=== PATIENT | male | born 1960 | race Caucasian/White ===

== ENCOUNTER 2018-07-30 10:13 | Emergency (ER) | payer MEDICAID ==
--- NOTE | 2018-07-30 11:57 | ED Physician Documentation ---
PD HPI ABD PAIN - Stated complaint Stated Complaint: STOMACH PAIN - Chief complaint Chief Complaint: Abd Pain - History obtained from History obtained from: Patient - History of Present Illness Timing - duration: Weeks (3) Timing - details: Waxing and waning Quality: Cramping Location: All over / everywhere Associated symptoms: Nausea, Diarrhea Similar symptoms before: Diagnosis (h/o Crohn's) - Additional information Additional information: The patient is a 58-year-old male with history of Crohn's disease, status post partial bowel resection, who presents with diarrhea of about 3 weeks' duration. He reports having 45 diarrhea stools per day. He has had intermittent abdominal cramping, and bloating. He reports nausea, without vomiting. He denies fever or dysuria. He denies any recent travel or camping, and has been on no recent antibiotic therapy. He has a history of similar symptoms intermittently in the past. The last time was this bad was about 5 years ago. He has no local primary physician. Review of Systems Constitutional: denies: Fever Ears: denies: Tinnitus/ringing Nose: denies: Congestion Throat: denies: Sore throat Cardiac: denies: Chest pain / pressure Respiratory: denies: Dyspnea, Cough GI: reports: Abdominal Pain, Nausea, Diarrhea. denies: Vomiting, Bloody / black stool : denies: Dysuria Skin: denies: Rash Musculoskeletal: denies: Back pain, Extremity pain Neurologic: denies: Focal weakness, Numbness, Headache PD PAST MEDICAL HISTORY - Past Medical History Past Medical History: Yes Cardiovascular: None Respiratory: None Endocrine/Autoimmune: None GI: Crohn's disease : None HEENT: None Psych: Depression, Anxiety Musculoskeletal: Chronic back pain Derm: None - Past Surgical History Past Surgical History: Yes General: Bowel surgery Neuro: Other - Present Medications Home Medications: Ambulatory Orders Medication Instructions Recorded Confirmed Promethazine [Phenergan] 25 mg PO Q6H PRN #10 tab 07/30/18 Sulfamethox/Trimeth 800/160 1 each PO BID #14 tablet 07/30/18 [Bactrim Ds 800/160] - Allergies Allergies/Adverse Reactions: Allergies Allergy/AdvReac Type Severity Reaction Status Date / Time No Known Drug Allergies Allergy Verified 07/30/18 10:21 - Living Situation Living Situation: reports: Alone - Social History Does the pt smoke?: Yes Smoking Status: Current every day smoker Does the pt drink ETOH?: Yes Does the pt have substance abuse?: No - Immunizations Immunizations are current?: No Immunizations: TDAP >10years/unknown, Other immun current - POLST Patient has POLST: No PD ED PE NORMAL - Vitals Vital signs reviewed: Yes (Diastolic hypertension initially.) - General General: Alert and oriented X 3, Well developed/nourished - HEENT HEENT: Atraumatic, Moist mucous membranes - Neck Neck: Supple, no meningeal sign, No adenopathy - Cardiac Cardiac: RRR - Respiratory Respiratory: No respiratory distress, Clear bilaterally - Abdomen Abdomen: Normal bowel sounds, Soft, Other (Mild tenderness to palpation in the left lower quadrant, without rebound or guarding.) - Back Back: No CVA TTP - Derm Derm: No rash - Extremities Extremities: No edema, No calf tenderness / cord - Neuro Neuro: Alert and oriented X 3, No motor deficit, Normal speech PD ED PE EXPANDED - Rectal Rectal: Heme Occult Neg - QC+, Hemorrhoid Results - Vitals Vitals: Oxygen O2 Source Room air - Labs Labs: Laboratory Tests 07/30/18 07/30/18 10:55 10:55 WBC 6.2 RBC 4.17 L Hgb 15.5 Hct 44.1 MCV 105.8 H MCH 37.1 H MCHC 35.1 RDW 15.3 H Plt Count 318 MPV 8.5 Neut # (Auto) 2.9 Lymph # (Auto) 2.0 [place] # (Auto) 0.4 Eos # (Auto) 0.8 H Baso # (Auto) 0.1 Absolute Nucleated RBC 0.00 Nucleated RBC % 0.1 Sodium 139 Potassium 4.1 Chloride 104 Carbon Dioxide 25 Anion Gap 10.0 BUN 10 Creatinine 0.8 Estimated GFR (MDRD) 99 Glucose 101 H Calcium 9.4 Total Bilirubin 0.5 AST 20 ALT 26 Alkaline Phosphatase 60 Total Protein 7.6 Albumin 4.3 Globulin 3.3 Albumin/Globulin Ratio 1.3 Lipase 36 - Rads (name of study) CT abd/pelvis Radiology: Prelim report reviewed, EMP read contemporaneously, See rad report (No CT evidence of bowel obstruction or pneumoperitoneum.) PD MEDICAL DECISION MAKING - ED course Complexity details: reviewed results, re-evaluated patient, considered differential, d/w patient ED course: The patient's presentation is significant for diarrhea of uncertain etiology. 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 Crohn's flareup was considered, but does not appear to be the cause. CT scan of the abdomen and pelvis reveals no evidence of inflammation, intra-abdominal abscess, bowel obstruction, or pneumoperitoneum. CBC and chemistry panel are essentially normal, except for macrocytosis. Infectious etiology is considered, but the patient was not able to deliver a stool specimen for evaluation. Treatment in the emergency department included administration of normal saline 1 L IV, and fentanyl 50 g IV. The patient is quite insistent that he be treated with antibiotics, stating that that has always worked in the past. I was unable to convince him otherwise. He is being discharged with prescription for Bactrim DS and for Phenergan. I discussed with him the importance of outpatient follow- up, as well as potentially worrisome signs or symptoms that should prompt reevaluation in the emergency department. Departure - Departure Disposition: 01 Home, Self Care Clinical Impression: Gastroenteritis, H/O Crohn's disease Condition: Stable Instructions: ED Abdominal Pain Unkn Cause Male Prescriptions: Promethazine [Phenergan] 25 mg PO Q6H PRN #10 tab PRN Reason: Nausea / Vomiting Sulfamethox/Trimeth 800/160 [Bactrim Ds 800/160] 1 each PO BID #14 tablet Comments: Drink plenty of fluids. Take Bactrim twice daily as prescribed. Follow-up with primary physician within 1-2 weeks. Call to schedule appointment. You can use Phenergan as prescribed as needed for nausea. Return to the emergency department if you develop increasing abdominal pain, dehydration, persistent vomiting, or otherwise worsening symptoms. Discharge Date/Time: 07/30/18 14:23
[2018-07-30 12:10] LABS: ALBUMIN 4.3 g/dL (3.2-5.5); ALBUMIN/GLOBULIN RATIO 1.3 (1.0-2.2); BILIRUBIN,TOTAL 0.5 mg/dL (0.2-1.0); CALCIUM 9.4 mg/dL (8.5-10.3); CREATININE 0.8 mg/dL (0.6-1.2); TOTAL PROTEIN 7.6 g/dL (6.7-8.2)
[2018-07-30 12:12] LABS: BASOPHILS # (AUTO) 0.1 10^3/uL (0.0-0.1); BASOPHILS % (AUTO) 1.1 %; EOSINOPHILS # (AUTO) 0.8 10^3/uL (0.0-0.7); EOSINOPHILS % (AUTO) 12.5 %; HGB - HEMOGLOBIN 15.5 g/dL (14.0-18.0); LYMPHOCYTES % (AUTO) 32.5 %; MEAN CORPUSCULAR HEMOGLOBIN 37.1 pg (27.0-31.0); MEAN CORPUSCULAR HGB CONC 35.1 g/dL (32.0-36.0); MEAN CORPUSCULAR VOLUME 105.8 fL (80.0-94.0); MEAN PLATELET VOLUME 8.5 fL (7.4-11.4); MONOCYTES # (AUTO) 0.4 10^3/uL (0.0-1.0); MONOCYTES % (AUTO) 6.9 %; NEUTROPHILS # (AUTO) 2.9 10^3/uL (1.5-6.6); PLT - PLATELET COUNT 318 10^3/uL (130-450); RED BLOOD COUNT 4.17 10^6/uL (4.70-6.10); RED CELL DISTRIBUTION WIDTH 15.3 % (12.0-15.0); WHITE BLOOD COUNT 6.2 x10^3/uL (4.8-10.8)
[2018-07-30] MEDS: SODIUM CHLORIDE 0.9% 1,000 ML IV ONE (12:18)
[2018-07-30] MEDS ORDERED: IOVERSOL 320 100 ML VIAL IVP ONE (12:23)
[2018-07-30] MEDS: fentaNYL 100 MCG/2 ML VIAL IVP STA (12:33)
[2018-07-30] MEDS: IOVERSOL 320 100 ML VIAL IVP ONE (12:52)
[2018-07-30 13:09] VITALS: BP 115/82
--- NOTE | 2018-07-30 13:23 | CT Report ---
Reason: LLQ abd pain; h/o Crohns Procedure Date: 07/30/2018 Accession Number: [id number] / [id number] Procedure: CT - Abdomen/Pelvis W CPT Code: FULL RESULT: EXAM: CT ABDOMEN AND PELVIS EXAM DATE: 07/30/2018 12:51 PM. CLINICAL HISTORY: Left lower quadrant abdominal pain. History of Crohn's disease. History of bowel resection, 5 times. COMPARISONS: None. TECHNIQUE: Routine helical CT imaging was performed through the abdomen and pelvis. IV contrast: Opti 320 90 mL. Enteric contrast: No. Reconstructions: Coronal and sagittal. In accordance with CT protocol optimization, one or more of the following dose reduction techniques were utilized for this exam: automated exposure control, adjustment of mA and/or KV based on patient size, or use of iterative reconstructive technique. FINDINGS: Lung Bases: Unremarkable. Liver: There are hepatic hypodensities which are too small to characterize. Gallbladder/Bile Ducts: Unremarkable. Spleen: There is splenic hypodensities which are too small to characterize. Pancreas: Normal. Adrenal Glands: Normal. Kidneys: Normal. No masses or hydronephrosis. Peritoneal Cavity/Bowel: The patient is status post multiple bowel surgeries with multiple anastomoses consistent with the provided history. There is no bowel obstruction. Appearance of the bowel wall demonstrates preserved enhancement throughout with distortion of the bowel configuration, expected with a history of Crohn's and multiple bowel surgeries. There is no free air or free fluid or lymphadenopathy. Appendix and cecum are absent. Pelvic Organs: The visualized prostate and bladder appear within normal limits. Vasculature: Mild atherosclerosis, no aneurysm. Bones: No significant abnormality. Other: None. IMPRESSION: No evidence of bowel obstruction or pneumoperitoneum. RADIA
== END 2018-07-30 14:23 | disposition home or self-care (01) ==
LOC: ED 10:13
DX: K52.9 Noninfective gastroenteritis and colitis, unspecified (principal); F17.200 Nicotine dependence, unspecified, uncomplicated; Z87.19 Personal history of other diseases of the digestive system; Z90.49 Acquired absence of other specified parts of digestive tract
CPT/HCPCS: 36415; 74177; 80053; 83690; 85025; 96374; 99283; 99284

== ENCOUNTER 2020-12-02 09:41 | Emergency (ER) | payer MEDICAID ==
[2020-12-02 09:53] VITALS: BP 115/75
[2020-12-02 10:04] LABS: BILIRUBIN,URINE NEGATIVE (NEGATIVE); GLUCOSE, URINE (UA) NEGATIVE (NEGATIVE); KETONES,URINE (UA) TRACE mg/dL (NEGATIVE); LEUKOCYTE ESTERASE, URINE NEGATIVE (NEGATIVE); NITRITE,URINE NEGATIVE (NEGATIVE); OCCULT BLOOD,URINE NEGATIVE (NEGATIVE); PROTEIN,URINE NEGATIVE (NEGATIVE); UROBILINOGEN,URINE 0.2 (NORMAL) E.U./dL (NORMAL)
[2020-12-02 10:08] LABS: CLARITY,URINE CLEAR (CLEAR)
[2020-12-02 10:26] LABS: ALBUMIN 4.5 g/dL (3.2-5.5); ALBUMIN/GLOBULIN RATIO 1.4 (1.0-2.2); BILIRUBIN,TOTAL 1.1 mg/dL (0.2-1.0); CALCIUM 9.3 mg/dL (8.5-10.3); POTASSIUM 3.1 mmol/L (3.5-5.0); TOTAL PROTEIN 7.7 g/dL (6.7-8.2)
[2020-12-02] MEDS ORDERED: POTASSIUM CHLOR 10 MEQ/100 ML 10 MEQ/100 ML BAG IV ONE (10:34)
[2020-12-02 10:40] LABS: BASOPHILS % (AUTO) 0.6 %; EOSINOPHILS # (AUTO) 0.3 10^3/uL (0.0-0.7); EOSINOPHILS % (AUTO) 4.4 %; HCT - HEMATOCRIT 43.6 % (42.0-52.0); HGB - HEMOGLOBIN 15.9 g/dL (14.0-18.0); LYMPHOCYTES # (AUTO) 1.5 10^3/uL (1.5-3.5); LYMPHOCYTES % (AUTO) 21.7 %; MEAN CORPUSCULAR HEMOGLOBIN 38.1 pg (27.0-31.0); MEAN CORPUSCULAR HGB CONC 36.5 g/dL (32.0-36.0); MEAN CORPUSCULAR VOLUME 104.6 fL (80.0-94.0); MEAN PLATELET VOLUME 10.1 fL (7.4-11.4); MONOCYTES # (AUTO) 0.4 10^3/uL (0.0-1.0); MONOCYTES % (AUTO) 6.2 %; NEUTROPHILS # (AUTO) 4.6 10^3/uL (1.5-6.6); PLT - PLATELET COUNT 349 10^3/uL (130-450); RED BLOOD COUNT 4.17 10^6/uL (4.70-6.10); RED CELL DISTRIBUTION WIDTH 13.5 % (12.0-15.0); WHITE BLOOD COUNT 6.8 x10^3/uL (4.8-10.8)
[2020-12-02 10:56] LABS: VBG BASE EXCESS -0.2 mmol/L (-2 - +2); VBG HCO3 21.9 mmol/L (23-28); VBG OXYGEN SATURATION 95.1 % (60-80); VBG PCO2 29.5 mmHg (41-51); VBG PH 7.488 (7.31-7.41); VBG PO2 67.6 mmHg (25-47); VBG TOTAL CO2 22.8 mmol/L (24-29)
[2020-12-02] MEDS ORDERED: predniSONE 20 MG TABLET PO STA (11:24)
--- NOTE | 2020-12-02 11:25 | XRAY Report ---
PROCEDURE: Chest 2 View X-Ray INDICATIONS: SOA, ARCHER TECHNIQUE: 2 view(s) of the chest. COMPARISON: 01/18/2014 FINDINGS: Surgical changes and devices: None. Lungs and pleura: No pleural effusions or pneumothorax. Lungs are clear. Mediastinum: Mediastinal contours are normal. Heart size is normal. Bones and chest wall: No suspicious bony abnormalities. Soft tissues appear unremarkable. IMPRESSION: No evidence acute pulmonary process. Reviewed by: Alek Miranda MD on 12/02/2020 10:24 AM [facility] Approved by: Alek Miranda MD on 12/02/2020 10:24 AM L[facility] Station ID: [id number]
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
[2020-12-02] MEDS ORDERED: POTASSIUM CHLORIDE 20 MEQ TABLET PO STA (11:34)
[2020-12-02 12:25] LABS: HIV RAPID SCREEN NEGATIVE (NEGATIVE)
[2020-12-02 20:23] LABS: CHLAMYDIA TRACHOMATIS DNA NEGATIVE (NEGATIVE); NEISSERIA GONORRHOEAE DNA NEGATIVE (NEGATIVE)
[2020-12-04 18:07] LABS: HEPATITIS A IGM NON-REACTIVE (NON-REACTIVE); HEPATITIS B CORE ANTIBODY IGM NON-REACTIVE (NON-REACTIVE); HEPATITIS B SURFACE ANTIGEN NON-REACTIVE (NON-REACTIVE); HEPATITIS C ANTIBODY NON-REACTIVE (NON-REACTIVE)
== END 2020-12-02 11:55 | disposition home or self-care (01) ==
LOC: ED 09:41
DX: R19.7 Diarrhea, unspecified (principal); R11.0 Nausea; R10.32 Left lower quadrant pain; R10.31 Right lower quadrant pain; F17.200 Nicotine dependence, unspecified, uncomplicated
CPT/HCPCS: 36415; 71046; 80053; 80074; 81003; 82803; 83690; 83880; 85025; 86592; 86703; 87491; 87591; 93005; 99284; A9270; J7512; 81001; 87086; 87661

== ENCOUNTER 2021-02-12 11:50 | Outpatient (CLI) | payer MEDICAID ==
[2021-02-12 12:31] LABS: BASOPHILS # (AUTO) 0.1 10^3/uL (0.0-0.1); BASOPHILS % (AUTO) 1.2 %; EOSINOPHILS # (AUTO) 0.5 10^3/uL (0.0-0.7); HCT - HEMATOCRIT 46.3 % (42.0-52.0); LYMPHOCYTES % (AUTO) 29.8 %; MEAN CORPUSCULAR HEMOGLOBIN 36.6 pg (27.0-31.0); MEAN CORPUSCULAR HGB CONC 34.6 g/dL (32.0-36.0); MEAN CORPUSCULAR VOLUME 105.9 fL (80.0-94.0); MONOCYTES # (AUTO) 0.5 10^3/uL (0.0-1.0); MONOCYTES % (AUTO) 7.8 %; NEUTROPHILS # (AUTO) 3.6 10^3/uL (1.5-6.6); NEUTROPHILS % (AUTO) 52.9 %; PLT - PLATELET COUNT 326 10^3/uL (130-450); RED BLOOD COUNT 4.37 10^6/uL (4.70-6.10); RED CELL DISTRIBUTION WIDTH 12.6 % (12.0-15.0); WHITE BLOOD COUNT 6.8 x10^3/uL (4.8-10.8)
[2021-02-12 12:36] LABS: INR 1.1 (0.8-1.2); PT - PROTHROMBIN TIME 11.9 secs (9.9-12.6)
[2021-02-12 12:46] LABS: ALBUMIN 4.5 g/dL (3.2-5.5); ALBUMIN/GLOBULIN RATIO 1.5 (1.0-2.2); ALKALINE PHOSPHATASE 51 IU/L (42-121); ALT ALANINE AMINOTRANSFERASE 25 IU/L (10-60); AST ASPARTATE AMINOTRANSFERASE 20 IU/L (10-42); BILIRUBIN,TOTAL 1.1 mg/dL (0.2-1.0); BUN - BLOOD UREA NITROGEN 9 mg/dL (6-20); CALCIUM 9.1 mg/dL (8.5-10.3); CARBON DIOXIDE - CO2 25 mmol/L (21-32); CHLORIDE 103 mmol/L (101-111); CHOL/HDL RATIO 4.6 (<5.0); CHOLESTEROL 132 mg/dL; CREATININE 0.7 mg/dL (0.6-1.2); GFR - MDRD 114 (>89); GLUCOSE 103 mg/dL (70-100); HDL CHOLESTEROL 29 mg/dL; LDL CHOLESTEROL,CALCULATED 46 mg/dL; LDL/HDL RATIO 1.6 (<3.6); POTASSIUM 3.1 mmol/L (3.5-5.0); SODIUM 139 mmol/L (135-145); TOTAL PROTEIN 7.5 g/dL (6.7-8.2); TRIGLYCERIDES 283 mg/dL; VLDL CHOLESTEROL 57 mg/dL
[2021-02-12 12:58] LABS: THYROID STIMULATING HORMONE 4.97 uIU/mL (0.34-5.60)
[2021-02-13 11:21] LABS: HEPATITIS C ANTIBODY NON-REACTIVE (NON-REACTIVE)
[2021-02-13 16:06] LABS: HIV AG/AB 4TH GEN NON-REACTIVE (NON-REACTIVE)
== END 2021-02-12 11:51 | disposition home or self-care (01) ==
LOC: LAB 11:50
PROVIDERS: ATTEND Internal Medicine
DX: E78.5 Hyperlipidemia, unspecified (principal); R63.4 Abnormal weight loss; R19.7 Diarrhea, unspecified; Z12.5 Encounter for screening for malignant neoplasm of prostate; D53.9 Nutritional anemia, unspecified; F10.10 Alcohol abuse, uncomplicated; Z20.2 Contact with and (suspected) exposure to infections with a predominantly sexual mode of transmission
CPT/HCPCS: 36415; 80053; 80061; 81599; 83721; 83993; 84153; 84443; 85025; 85610; 86592; 86803; 87045; 87177; 87209; 87329; 87389; 87427; 87449; 87493

== ENCOUNTER 2021-12-19 10:06 | Outpatient (CLI) | payer MEDICAID ==
[2021-12-19 14:31] LABS: BASOPHILS # (AUTO) 0.1 10^3/uL (0.0-0.1); BASOPHILS % (AUTO) 1.2 %; EOSINOPHILS # (AUTO) 0.8 10^3/uL (0.0-0.7); EOSINOPHILS % (AUTO) 10.7 %; HCT - HEMATOCRIT 43.9 % (42.0-52.0); LYMPHOCYTES # (AUTO) 2.2 10^3/uL (1.5-3.5); LYMPHOCYTES % (AUTO) 30.2 %; MEAN CORPUSCULAR HGB CONC 34.2 g/dL (32.0-36.0); MEAN CORPUSCULAR VOLUME 102.3 fL (80.0-94.0); MEAN PLATELET VOLUME 10.2 fL (7.4-11.4); MONOCYTES # (AUTO) 0.7 10^3/uL (0.0-1.0); NEUTROPHILS # (AUTO) 3.5 10^3/uL (1.5-6.6); NEUTROPHILS % (AUTO) 48.6 %; PLT - PLATELET COUNT 279 10^3/uL (130-450); RED BLOOD COUNT 4.29 10^6/uL (4.70-6.10); WHITE BLOOD COUNT 7.2 x10^3/uL (4.8-10.8)
[2021-12-19 15:11] LABS: ALBUMIN/GLOBULIN RATIO 1.5 (1.0-2.2); BILIRUBIN,TOTAL 0.8 mg/dL (0.2-1.0); CALCIUM 9.1 mg/dL (8.5-10.3); CREATININE 0.9 mg/dL (0.6-1.2); POTASSIUM 3.6 mmol/L (3.5-5.0); TOTAL PROTEIN 6.7 g/dL (6.7-8.2)
== END 2021-12-19 10:07 | disposition home or self-care (01) ==
LOC: LAB.S 10:06
PROVIDERS: ATTEND Registered Nurse
DX: K50.90 Crohn's disease, unspecified, without complications (principal); R63.4 Abnormal weight loss; R19.7 Diarrhea, unspecified; D53.9 Nutritional anemia, unspecified
CPT/HCPCS: 36415; 80053; 82150; 83690; 85025

== ENCOUNTER 2023-08-14 09:00 | Outpatient (CLI) | payer MEDICARE, MEDICAID ==
[2023-08-14 09:11] LABS: BASOPHILS # (AUTO) 0.1 10^3/uL (0.0-0.1); EOSINOPHILS # (AUTO) 0.6 10^3/uL (0.0-0.7); EOSINOPHILS % (AUTO) 9.3 %; HCT - HEMATOCRIT 39.6 % (42.0-52.0); HGB - HEMOGLOBIN 14.2 g/dL (14.0-18.0); LYMPHOCYTES # (AUTO) 1.9 10^3/uL (1.5-3.5); MEAN CORPUSCULAR HEMOGLOBIN 41.8 pg (27.0-31.0); MEAN CORPUSCULAR HGB CONC 35.9 g/dL (32.0-36.0); MEAN CORPUSCULAR VOLUME 116.5 fL (80.0-94.0); MEAN PLATELET VOLUME 9.7 fL (7.4-11.4); MONOCYTES # (AUTO) 0.5 10^3/uL (0.0-1.0); MONOCYTES % (AUTO) 7.2 %; NEUTROPHILS # (AUTO) 3.6 10^3/uL (1.5-6.6); NEUTROPHILS % (AUTO) 53.4 %; PLT - PLATELET COUNT 334 10^3/uL (130-450); RED CELL DISTRIBUTION WIDTH 12.7 % (12.0-15.0); WHITE BLOOD COUNT 6.7 x10^3/uL (4.8-10.8)
[2023-08-14 09:13] LABS: RBC MORPHOLOGY (MULTIPLE) 3+ MACROCYTOSIS (NORMAL); SLIDE REVIEW? Indicated
[2023-08-14 09:26] LABS: AMYLASE 47 U/L (28-100)
[2023-08-14 09:32] LABS: ALBUMIN 4.2 g/dL (3.2-5.5); ALBUMIN/GLOBULIN RATIO 1.9 (1.0-2.2); ALKALINE PHOSPHATASE 49 IU/L (42-121); ALT ALANINE AMINOTRANSFERASE 13 IU/L (10-60); AST ASPARTATE AMINOTRANSFERASE 13 IU/L (10-42); BILIRUBIN,TOTAL 0.9 mg/dL (0.2-1.0); BUN - BLOOD UREA NITROGEN 9 mg/dL (6-20); CALCIUM 8.9 mg/dL (8.5-10.3); CARBON DIOXIDE - CO2 29 mmol/L (21-32); CHLORIDE 105 mmol/L (101-111); CHOL/HDL RATIO 3.1 (<5.0); CHOLESTEROL 93 mg/dL; GFR - MDRD 75 (>89); GLUCOSE 102 mg/dL (74-104); HDL CHOLESTEROL 30 mg/dL; LDL CHOLESTEROL,CALCULATED 17 mg/dL; LDL/HDL RATIO 0.6 (<3.6); LIPASE 44 U/L (11-82); POTASSIUM 3.4 mmol/L (3.5-4.5); SODIUM 139 mmol/L (135-145); TOTAL PROTEIN 6.4 g/dL (6.4-8.9); TRIGLYCERIDES 232 mg/dL (48-352); VLDL CHOLESTEROL 46 mg/dL
[2023-08-14 09:43] LABS: THYROID STIMULATING HORMONE 7.44 uIU/mL (0.34-5.60)
== END 2023-08-14 09:01 | disposition home or self-care (01) ==
LOC: LAB 09:00
PROVIDERS: ATTEND Nurse Practitioner Family
DX: E78.5 Hyperlipidemia, unspecified (principal); R63.4 Abnormal weight loss; Z12.5 Encounter for screening for malignant neoplasm of prostate; R10.84 Generalized abdominal pain
CPT/HCPCS: 36415; 80053; 80061; 82150; 83690; 84439; 84443; 85025; G0103; 83721; 84153

== ENCOUNTER 2023-08-27 10:57 | Emergency (ER) | payer MEDICARE, MEDICAID ==
--- NOTE | 2023-08-27 13:18 | ED Physician Documentation ---
PD HPI ABD PAIN - Stated complaint Stated Complaint: /PX - Chief complaint Chief Complaint: Abd Pain - History obtained from History obtained from: Patient - Additional information Additional information: 63-year-old gentleman with history of Crohn's disease, not currently on any therapy for that but has had a few surgeries for it in the past. He says in the last month he has had increasing tailbone pain and severe rectal pain when having a bowel movement. He has noticed a change in the caliber of his stools with small stools and frequent stooling and it is very painful when he stools. He was seen in the office, he had labs done which showed a mild elevation in PSA, but relatively unremarkable labs otherwise. States his last colonoscopy was many years ago, he does not recall yet specifically. PD PAST MEDICAL HISTORY - Past Medical History Past Medical History: Yes Cardiovascular: None Respiratory: None Endocrine/Autoimmune: None GI: Crohn's disease : None HEENT: None Psych: Depression, Anxiety Musculoskeletal: Chronic back pain Derm: None - Past Surgical History Past Surgical History: Yes General: Bowel surgery Neuro: Other - Present Medications Home Medications: Ambulatory Orders Medication Instructions Recorded Confirmed Promethazine [Phenergan] 25 mg PO Q6H PRN #10 tab 07/30/18 Sulfamethox/Trimeth 800/160 1 each PO BID #14 tablet 07/30/18 [Bactrim Ds 800/160] predniSONE [Deltasone] 20 mg PO [id number] #21 tab 12/02/20 HYDROcod/ACETAM 5/325 [[place] 5/325] 1 - 2 tab PO Q6H PRN #10 tablet 08/27/23 predniSONE [Deltasone] 20 mg PO [id number] #21 tab 08/27/23 - Allergies Allergies/Adverse Reactions: Allergies Allergy/AdvReac Type Severity Reaction Status Date / Time No Known Drug Allergies Allergy Verified 08/27/23 11:22 - Social History Does the pt smoke?: Yes Smoking Status: Current every day smoker Does the pt drink ETOH?: Yes Does the pt have substance abuse?: No - Immunizations Immunizations are current?: No Immunizations: TDAP >10years/unknown, Other immun current - POLST Patient has POLST: No PD ED PE NORMAL - Vitals Vital signs reviewed: Yes - General General: Alert and oriented X 3, No acute distress - Abdomen Abdomen: Normal bowel sounds, Soft, Non tender - Rectal Rectal: Other (There is some large external hemorrhoids but do not appear acutely inflamed. There is no mass within fingers reach. No gross blood.) - Extremities Extremities: No edema, No calf tenderness / cord - Neuro Neuro: Alert and oriented X 3 Results - Vitals Vitals: Vital Signs - 24 hr 08/27/23 08/27/23 11:19 14:24 Temperature 36.4 C L Heart Rate 90 65 Respiratory 20 20 Rate Blood Pressure 139/97 H 125/78 O2 Saturation 99 97 Oxygen O2 Source Room air - Labs Labs: Laboratory Tests 08/27/23 08/27/23 08/27/23 13:35 13:35 13:35 WBC 9.2 RBC 3.52 L Hgb 14.8 Hct 41.2 L MCV 117.0 H MCH 42.0 H MCHC 35.9 RDW 13.3 Plt Count 364 MPV 10.1 Neut # (Auto) 5.4 Lymph # (Auto) 2.4 [place] # (Auto) 0.6 Eos # (Auto) 0.7 Baso # (Auto) 0.1 Absolute Nucleated RBC 0.00 Nucleated RBC % 0.0 Manual Slide Review Indicated Platelet Estimate NORMAL (130-450,000) Platelet Morphology NORMAL APPEARANCE RBC Morph Micro Appear 2+ MACROCYTOSIS PT 12.5 INR 1.1 Sodium 137 Potassium 4.1 Chloride 105 Carbon Dioxide 24 Anion Gap 8.0 BUN 11 Creatinine 1.0 Estimated GFR (MDRD) 75 L Glucose 104 Calcium 9.1 Total Bilirubin 0.5 AST 13 ALT 15 Alkaline Phosphatase 53 Total Protein 6.9 Albumin 4.3 Globulin 2.6 Albumin/Globulin Ratio 1.7 Slides for Path Review Indicated - Rads (name of study) ct a/p Relevant Findings:: Final report received, EMP independent interpretation of test PD Medical Decision Making - ED course ED course: 63-year-old gentleman with change in stool caliber and weight loss. He has a history of Crohn's. Workup in the emergency department demonstrates that he is mildly anemic with macrocytic indices, unremarkable CMP. CT of the abdomen pelvis demonstrating changes probably consistent with a Crohn's flare and he is placed on prednisone with some pain medication with close GI follow-up recommended. Departure - Departure Disposition: 01 Home, Self Care Clinical Impression: H/O Crohn's disease, Colitis Condition: Good Record reviewed to determine appropriate education?: Yes Instructions: ED Inflam Bowel Disease Crohn Prescriptions: predniSONE [Deltasone] 20 mg PO [id number] #21 tab HYDROcod/ACETAM 5/325 [[place] 5/325] 1 - 2 tab PO Q6H PRN #10 tablet PRN Reason: Pain Comments: As discussed, this looks more like a Crohn's flare than anything else. Talk with your primary care physician about a referral for GI consultation and likely colonoscopy as it has been quite sometime since you have had when it sounds like. In the meantime I sent prescriptions for prednisone and pain medication to the [facility] in [place]. I am prescribing a short course of narcotic pain medication for you. These are potentially dangerous and addictive medications that should be used carefully. These medications may constipate you. Take an vzwn-lgg-byhlvld stool softener (docusate) twice daily with plenty of water while taking these medications. If you go 24 hours without a bowel movement, take oitb-roz-[id number] miralax, per package instructions. Do not drink or drive while taking these medications. If you received narcotic or sedating medications while in the emergency department, do not drive for 24 hours. Store this medication in a safe, secure place and out of reach of children. It is a violation of federal law to give or sell this medication to another person or to use in a manner other than prescribed. The ED will not refill narcotic prescriptions, including prescriptions lost or stolen. To dispose of unwanted medications: 1. [facility] provides a drop box for medication in pill form only (no liquids) 8:00 am to 4:30 p.m. Thursday-Thursday in the lobby of the [facility], [address] [place] [address]. Empty pills into ziplock bag before disposal. Call [phone] for information. 2.[facility] is a free service available to all [facility] residents. Go to [email or web address] Note that many narcotic pain relievers also contain Tylenol/acetaminophen. Please ensure that your total dose of acetaminophen from all sources does not exceed 3 g (3000 mg) per day. Forms: PCP List
[2023-08-27] MEDS: HYDROmorphone 1 MG/ML CARPUJECT IVP STA (13:28)
[2023-08-27 13:52] LABS: INR 1.1 (0.8-1.2); PT - PROTHROMBIN TIME 12.5 secs (9.9-12.6)
[2023-08-27 13:53] LABS: ALBUMIN 4.3 g/dL (3.2-5.5); ALBUMIN/GLOBULIN RATIO 1.7 (1.0-2.2); BILIRUBIN,TOTAL 0.5 mg/dL (0.2-1.0); CALCIUM 9.1 mg/dL (8.5-10.3); POTASSIUM 4.1 mmol/L (3.5-4.5); TOTAL PROTEIN 6.9 g/dL (6.4-8.9)
[2023-08-27] MEDS ORDERED: iohexoL-300 100 ML VIAL ONE ×2 (13:56→14:06)
[2023-08-27 13:58] LABS: BASOPHILS # (AUTO) 0.1 10^3/uL (0.0-0.1); BASOPHILS % (AUTO) 0.9 %; EOSINOPHILS # (AUTO) 0.7 10^3/uL (0.0-0.7); EOSINOPHILS % (AUTO) 7.9 %; HCT - HEMATOCRIT 41.2 % (42.0-52.0); HGB - HEMOGLOBIN 14.8 g/dL (14.0-18.0); LYMPHOCYTES # (AUTO) 2.4 10^3/uL (1.5-3.5); LYMPHOCYTES % (AUTO) 25.4 %; MEAN CORPUSCULAR HGB CONC 35.9 g/dL (32.0-36.0); MEAN PLATELET VOLUME 10.1 fL (7.4-11.4); MONOCYTES # (AUTO) 0.6 10^3/uL (0.0-1.0); MONOCYTES % (AUTO) 6.7 %; NEUTROPHILS # (AUTO) 5.4 10^3/uL (1.5-6.6); NEUTROPHILS % (AUTO) 58.9 %; PLT - PLATELET COUNT 364 10^3/uL (130-450); RED BLOOD COUNT 3.52 10^6/uL (4.70-6.10); RED CELL DISTRIBUTION WIDTH 13.3 % (12.0-15.0); SLIDE REVIEW? Indicated; WHITE BLOOD COUNT 9.2 x10^3/uL (4.8-10.8)
[2023-08-27 14:04] LABS: PLATELET ESTIMATE, MANUAL NORMAL (130-450,000) (NORMAL); PLATELET MORPHOLOGY NORMAL APPEARANCE (NORMAL); RBC MORPHOLOGY (MULTIPLE) 2+ MACROCYTOSIS (NORMAL); SLIDE SENT FOR PATH REVIEW? Indicated
[2023-08-27] MEDS: iohexoL-300 100 ML VIAL IVP ONE (14:57)
--- NOTE | 2023-08-27 15:13 | CT Report ---
PROCEDURE: Abdomen/Pelvis W INDICATIONS: iv pelvic pain CONTRAST: Omni 300 100ml TECHNIQUE: After the administration of intravenous contrast, a CT scan of the abdomen and pelvis was performed. Images were recorded and evaluated at appropriate window settings. Reformats: coronal and sagittal. F or radiation dose reduction, the following was used: automated exposure control, adjustment of mA and /or kV according to patient size. COMPARISON: CT abdomen pelvis 07/30/2018 FINDINGS: Image quality: Diagnostic. Lower chest: Unremarkable. Liver: Multiple low-attenuation hepatic foci with the larger lesions most consistent with simple cyst s. The smaller lesions are too small to definitively characterize. They have increased slightly in si ze compared to 2019.. Gallbladder and biliary tree: Spleen: No splenomegaly. Pancreas: No pancreatic ductal dilation. Adrenals: No adrenal nodule. Kidneys and ureters: No hydronephrosis. No renal cystic lesion which requires follow up. No solid mas s. Stomach, bowel and peritoneum: No bowel distension. No pathologic free fluid. There is mild appearanc e of bowel wall mucosal enhancement. It becomes more prominent and thickened with mild inflammatory c hange in the distal colon extending to the rectosigmoid junction. There is mild thickening at the ter katie ileum. Lymph nodes: No central or retroperitoneal adenopathy. Vessels: No infrarenal aortic aneurysm. PELVIS Reproductive organs: Unremarkable. Bladder: No abnormal wall thickening, accounting for underdistention. Pelvic lymph nodes: No pelvic adenopathy by size criteria. Bones: No aggressive osseous abnormality. Other: No significant ventral or inguinal hernia. IMPRESSION: Areas of mucosal enhancement and thickening within the colon as well as the terminal ileum as describ ed above. Associated inflammatory changes present in the distal sigmoid colon extending to rectosigmo id junction. Overall appearance is suggestive of infection/inflammation such as focal colitis. No div erticula are identified. Recommend correlation to history of inflammatory bowel disease. Reviewed by: Sienna Wolf MD on 08/27/2023 3:12 PM PDT Approved by: Sienna Wolf MD on 08/27/2023 3:12 PM PDT Station ID: [id number]
[2023-08-27 15:31] VITALS: BP 129/90; O2SAT 100
== END 2023-08-27 15:29 | disposition home or self-care (01) ==
LOC: ED 10:57
DX: K50.911 Crohn's disease, unspecified, with rectal bleeding (principal); F17.200 Nicotine dependence, unspecified, uncomplicated
CPT/HCPCS: 36415; 74177; 80053; 85025; 85610; 96374; 99283; 99284; J1170; Q9967

== ENCOUNTER 2023-09-13 07:24 | Outpatient (CLI) | payer MEDICARE, MEDICAID | END 2023-09-13 23:59 | disposition critical access hospital (66) | LOC: EMS 07:24 | DX: R19.5 Other fecal abnormalities (principal) | CPT/HCPCS: A0425; A0427 ==

== ENCOUNTER 2023-09-13 07:45 | Emergency (ER) | payer MEDICARE, MEDICAID ==
--- NOTE | 2023-09-13 07:56 | ED Physician Documentation ---
PD HPI ABD PAIN - Stated complaint Stated Complaint: ABD PX/HALLUCINATIONS - History obtained from History obtained from: Patient, EMS - History of Present Illness Timing - onset: How many days ago (he states he has chronic left abd pain due to crohns disease and multiple surgieres scarring. Has worse symptoms with NSAIDs. is not on any Crohns type meds. Has had increased pain lately. Noted dark stools overnight/this morning, looking like "chocolate syrup". He was concerned about GI bleeding.), Chronic Timing - details: Gradual onset, Waxing and waning Quality: Cramping, Aching, Pain Location: LLQ Radiation: Lower back Associated symptoms: Melena (this morning), Loss of appetite, Other (when asked, he states he had taken Pepto Bismol few times in past few days for the abd pain.). No: Fever, Nausea, Vomiting, Diarrhea Similar symptoms before: Has not had sx before Review of Systems Constitutional: denies: Fever, Chills Nose: denies: Rhinorrhea / runny nose, Congestion Throat: denies: Sore throat Respiratory: denies: Cough PD PAST MEDICAL HISTORY - Past Medical History Cardiovascular: None Respiratory: None Endocrine/Autoimmune: None GI: Crohn's disease : None HEENT: None Psych: Depression, Anxiety Musculoskeletal: Chronic back pain Derm: None - Past Surgical History Past Surgical History: Yes General: Bowel surgery Neuro: Other - Present Medications Home Medications: Ambulatory Orders Medication Instructions Recorded Confirmed Cyanocobalamin (Vitamin B-12) 1,000 mcg PO DAILY #30 cap 09/13/23 [Vitamin B-12] Magnesium Oxide [Mag Ox] 400 mg PO DAILY #30 tablet 09/13/23 Potassium Citrate [Potassium] 99 mg PO DAILY #30 cap 09/13/23 Thiamine [Vitamin B-1] 100 mg PO DAILY #30 tablet 09/13/23 - Allergies Allergies/Adverse Reactions: Allergies Allergy/AdvReac Type Severity Reaction Status Date / Time No Known Drug Allergies Allergy Verified 09/13/23 08:05 - Social History Does the pt smoke?: Yes Smoking Status: Current every day smoker Does the pt drink ETOH?: Yes Does the pt have substance abuse?: No - Immunizations Immunizations are current?: No Immunizations: TDAP >10years/unknown, Other immun current - POLST Patient has POLST: No Results - Vitals Vitals: Vital Signs - 24 hr 09/13/23 09/13/23 09/13/23 07:56 08:52 11:07 Temperature 36.7 C 36.4 C L Heart Rate 112 H 97 91 Respiratory 20 15 18 Rate Blood Pressure 172/102 H 154/87 H 159/90 H O2 Saturation 98 97 98 Oxygen O2 Source Room air - Labs Labs: Microbiology 09/13/23 08:23 Occult Blood - Final Stool Laboratory Tests 09/13/23 09/13/23 09/13/23 07:55 07:55 07:55 WBC 4.6 L RBC 2.70 L Hgb 11.0 L Hct 31.2 L MCV 115.6 H MCH 40.7 H MCHC 35.3 RDW 13.3 Plt Count 228 MPV 9.8 Neut # (Auto) 2.6 Lymph # (Auto) 1.3 L [place] # (Auto) 0.4 Eos # (Auto) 0.2 Baso # (Auto) 0.0 Absolute Nucleated RBC 0.00 Nucleated RBC % 0.0 Manual Slide Review Indicated WBC Morphology NORMAL APPEARANCE Platelet Estimate NORMAL (130-450,000) Platelet Morphology NORMAL APPEARANCE RBC Morph Micro Appear 1+ MACROCYTOSIS ESR 29 H Sodium 141 Potassium 3.1 L Chloride 111 Carbon Dioxide 20 L Anion Gap 10.0 BUN 8 Creatinine 0.8 Estimated GFR (MDRD) 97 Glucose 108 H Calcium 8.4 L Phosphorus 3.2 Magnesium 1.4 L Total Bilirubin 0.4 AST 17 ALT 16 Alkaline Phosphatase 54 C-Reactive Protein < 0.5 Total Protein 5.7 L Albumin 3.4 Globulin 2.3 Albumin/Globulin Ratio 1.5 Lipase 51 Vitamin B12 < 50 L Ethyl Alcohol 43.2 PD Medical Decision Making - ED course Complexity details: reviewed results (basic cehmistries show low Mag and Potassium. Due to poor nutrition (alcohol and Crohns), I did check some vitamin levels, in particular B1 for cognitive and B12 for anemia and cognitive. He is not on meds.), considered differential (took him awhilte to have small BM. He had declined rectal exam without sedation to do it. But did guiac and was negative in lab. Nurse notes stool was uniformly chocolate colored. Presume coloration from Pepto. Has chronic pain from Crohns. ), d/w patient ED course: the patient was intent on discharge to get the next bus after basic labs were resulted. Will give list of supplements that I would suggest. He did not want alchol treatment nor detox. He states he does not feel he has a problem with it. His main concern coming to ED was about dark stool being bleeding. When confirmed was not blood and likely pepto, he was must mainly interested in leaving. Departure - Departure Disposition: 01 Home, Self Care Clinical Impression: Dark stools, Left lateral abdominal pain, Vitamin B 12 deficiency, Hypomagnesemia, Hypokalemia Crohn disease Qualifiers: Gastrointestinal tract location: large intestine Condition: Stable Record reviewed to determine appropriate education?: Yes Prescriptions: Magnesium Oxide [Mag Ox] 400 mg PO DAILY #30 tablet Potassium Citrate [Potassium] 99 mg PO DAILY #30 cap Thiamine [Vitamin B-1] 100 mg PO DAILY #30 tablet Cyanocobalamin (Vitamin B-12) [Vitamin B-12] 1,000 mcg PO DAILY #30 cap Comments: Your stool test is negative for blood. The dark coloring is likely from the Pepto-Bismol which we will do that. However your blood count is a bit lower compared to just a couple of weeks ago. This may be from some blood loss from hemorrhoids etc. however more likely is your body does not have the proper building blocks to help him build the blood cells. In particular your blood test today do show deficiency and vitamin B12 which is one of the components for building red cells. I would suggest a vitamin B12 supplement for at least the next month or so. Your blood test also show low levels of potassium and magnesium which can cause some element of weakness, decreased strength, impaired intestinal movement etc. I would suggest a supplement for these as well. Continue with your normal diet and intake. Tylenol every 4-6 hours if needed for basic pains. Follow-up with your primary care if not improved well over the next week or so. Forms: PCP List Discharge Date/Time: 09/13/23 11:11
[2023-09-13 08:14] LABS: BASOPHILS % (AUTO) 0.9 %; EOSINOPHILS # (AUTO) 0.2 10^3/uL (0.0-0.7); EOSINOPHILS % (AUTO) 4.8 %; HCT - HEMATOCRIT 31.2 % (42.0-52.0); LYMPHOCYTES # (AUTO) 1.3 10^3/uL (1.5-3.5); LYMPHOCYTES % (AUTO) 28.1 %; MEAN CORPUSCULAR HEMOGLOBIN 40.7 pg (27.0-31.0); MEAN CORPUSCULAR HGB CONC 35.3 g/dL (32.0-36.0); MEAN CORPUSCULAR VOLUME 115.6 fL (80.0-94.0); MEAN PLATELET VOLUME 9.8 fL (7.4-11.4); MONOCYTES # (AUTO) 0.4 10^3/uL (0.0-1.0); MONOCYTES % (AUTO) 9.2 %; NEUTROPHILS # (AUTO) 2.6 10^3/uL (1.5-6.6); NEUTROPHILS % (AUTO) 56.8 %; PLT - PLATELET COUNT 228 10^3/uL (130-450); RED CELL DISTRIBUTION WIDTH 13.3 % (12.0-15.0); WHITE BLOOD COUNT 4.6 x10^3/uL (4.8-10.8)
[2023-09-13] MEDS: FOLIC ACID INJ 1 MG in SODIUM CHLORIDE 0.9% 1,000 ML IV STA (08:27)
[2023-09-13 08:28] LABS: ALBUMIN 3.4 g/dL (3.2-5.5); ALBUMIN/GLOBULIN RATIO 1.5 (1.0-2.2); ALKALINE PHOSPHATASE 54 IU/L (42-121); ALT ALANINE AMINOTRANSFERASE 16 IU/L (10-60); AST ASPARTATE AMINOTRANSFERASE 17 IU/L (10-42); BILIRUBIN,TOTAL 0.4 mg/dL (0.2-1.0); BUN - BLOOD UREA NITROGEN 8 mg/dL (6-20); CALCIUM 8.4 mg/dL (8.5-10.3); CARBON DIOXIDE - CO2 20 mmol/L (21-32); CHLORIDE 111 mmol/L (101-111); CREATININE 0.8 mg/dL (0.6-1.3); CRP - C-REACTIVE PROTEIN < 0.5 mg/dL (<0.5); ETOH - ETHANOL 43.2 mg/dL; GFR - MDRD 97 (>89); GLUCOSE 108 mg/dL (74-104); LIPASE 51 U/L (11-82); MAGNESIUM 1.4 mg/dL (1.7-2.3); PHOSPHORUS 3.2 mg/dL (2.5-5.0); POTASSIUM 3.1 mmol/L (3.5-4.5); SODIUM 141 mmol/L (135-145); TOTAL PROTEIN 5.7 g/dL (6.4-8.9)
[2023-09-13] MEDS: DEXAMETHASONE 10 MG/ML VIAL IVP STA (08:29)
[2023-09-13] MEDS: KETOROLAC 15 MG/ML VIAL IVP STA (08:29)
[2023-09-13 08:38] LABS: PLATELET ESTIMATE, MANUAL NORMAL (130-450,000) (NORMAL); PLATELET MORPHOLOGY NORMAL APPEARANCE (NORMAL); SLIDE REVIEW? Indicated
[2023-09-13 08:39] LABS: RBC MORPHOLOGY (MULTIPLE) 1+ MACROCYTOSIS (NORMAL); WBC MORPHOLOGY (MULTIPLE) NORMAL APPEARANCE (NORMAL)
[2023-09-13] MEDS: SODIUM CHLORIDE 0.9% 1,000 ML IV STA (08:39)
[2023-09-13] MEDS: POTASSIUM BICARB 25 MEQ TABLET PO STA (08:44)
[2023-09-13] MEDS: MAGNESIUM SULFATE 2 GRAM 2 GM/50 ML BAG IV ONE (08:45)
[2023-09-13 11:11] VITALS: BP 159/90; O2SAT 98
== END 2023-09-13 11:11 | disposition home or self-care (01) ==
LOC: EDUNIT# → ED 07:45
DX: K50.10 Crohn's disease of large intestine without complications (principal); K92.1 Melena; E87.6 Hypokalemia; E83.42 Hypomagnesemia; E53.8 Deficiency of other specified B group vitamins; F17.200 Nicotine dependence, unspecified, uncomplicated
CPT/HCPCS: 36415; 80053; 82272; 82607; 83690; 83735; 84100; 85025; 85651; 86140; 96365; 96366; 96368; 96375; 99284; A9270; G0480; 82077

== ENCOUNTER 2023-09-26 09:18 | Emergency (ER) | payer MEDICARE, MEDICAID ==
[2023-09-26] MEDS: LIDOCAINE PATCH 5% TOP STA (10:38)
[2023-09-26] MEDS: BACITRACIN ZINC OINT 1 PACKET TOP STA (11:01)
[2023-09-26] MEDS: TETANUS/DIPHTHERIA/PERTUSSIS 0.5 ML SYRINGE IM ONE (11:01)
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
--- NOTE | 2023-09-26 11:39 | XRAY Report ---
PROCEDURE: Ribs w/PA Chest 3+V RT INDICATIONS: R sided pain after fall TECHNIQUE: 2 views of the ribs were acquired, along with a single view chest. COMPARISON: 12/02/2020 FINDINGS: Surgical changes and devices: None. Bones and chest wall: A marker is placed upon the area of pain. At this site, no fractures are seen. No fractures or dislocations are seen elsewhere. No suspicious bony lesions. Age-appropriate degen erative changes are seen. The overlying soft tissues appear unremarkable. Lungs and pleura: No pleural effusions or pneumothorax. Lungs appear clear. Mediastinum: Mediastinal contours appear normal. Heart size is normal. IMPRESSION: No displaced rib fracture or pneumothorax. Reviewed by: Domo Vee MD on 09/26/2023 10:37 AM L[facility] Approved by: Domo Vee MD on 09/26/2023 10:37 AM LISE Station ID: [id number]
[2023-09-26 11:47] VITALS: BP 153/81; O2SAT 99
== END 2023-09-26 12:29 | disposition home or self-care (01) ==
LOC: ED 09:18
DX: R07.81 Pleurodynia (principal); T22.211A Burn of second degree of right forearm, initial encounter; W01.198A Fall on same level from slipping, tripping and stumbling with subsequent striking against other object, initial encounter; X15.0XXA Contact with hot stove (kitchen), initial encounter; Y92.009 Unspecified place in unspecified non-institutional (private) residence as the place of occurrence of the external cause; F17.200 Nicotine dependence, unspecified, uncomplicated
CPT/HCPCS: 71101; 90471; 90715; 99283; 99284; A9270; 93005

== ENCOUNTER 2023-10-06 10:22 | Outpatient (CLI) | payer MEDICARE, MEDICAID | END 2023-10-06 10:23 | disposition critical access hospital (66) | LOC: EMS 10:22 | DX: F10.90 Alcohol use, unspecified, uncomplicated (principal); R00.0 Tachycardia, unspecified | CPT/HCPCS: A0425; A0429 ==

== ENCOUNTER 2023-10-06 10:41 | Emergency (ER) | payer MEDICARE, MEDICAID | END 2023-10-06 10:55 | disposition left against medical advice (07) | LOC: EDUNIT# → ED 10:41 | DX: Z53.21 Procedure and treatment not carried out due to patient leaving prior to being seen by health care provider (principal) ==

== ENCOUNTER 2023-11-30 00:19 | Outpatient (CLI) | payer MEDICARE, MEDICAID | END 2023-11-30 23:59 | disposition critical access hospital (66) | LOC: EMS 00:19 | DX: R10.84 Generalized abdominal pain (principal); R19.7 Diarrhea, unspecified | CPT/HCPCS: A0425; A0429 ==

== ENCOUNTER 2023-11-30 01:04 | Observation (INO) | payer MEDICARE, MEDICAID ==
[2023-11-30 01:42] LABS: BASOPHILS % (AUTO) 0.6 %; HGB - HEMOGLOBIN 10.7 g/dL (14.0-18.0); MEAN PLATELET VOLUME 10.3 fL (7.4-11.4); RED CELL DISTRIBUTION WIDTH 14.1 % (12.0-15.0)
[2023-11-30 01:44] LABS: INR 1.2 (0.8-1.2); PT - PROTHROMBIN TIME 13.6 secs (9.9-12.6)
[2023-11-30] MEDS: ONDANSETRON 4 MG/2 ML VIAL IVP STA (01:44)
[2023-11-30] MEDS: MORPHINE 2 MG/ML CARPUJECT IVP STA ×2 (01:44→02:42)
[2023-11-30 01:46] LABS: EOSINOPHILS # (AUTO) 0.7 10^3/uL (0.0-0.7); EOSINOPHILS % (AUTO) 9.8 %; HCT - HEMATOCRIT 30.3 % (42.0-52.0); LYMPHOCYTES # (AUTO) 1.8 10^3/uL (1.5-3.5); LYMPHOCYTES % (AUTO) 24.5 %; MEAN CORPUSCULAR HEMOGLOBIN 46.5 pg (27.0-31.0); MEAN CORPUSCULAR HGB CONC 35.3 g/dL (32.0-36.0); MEAN CORPUSCULAR VOLUME 131.7 fL (80.0-94.0); MONOCYTES # (AUTO) 0.7 10^3/uL (0.0-1.0); MONOCYTES % (AUTO) 9.5 %; NEUTROPHILS # (AUTO) 3.9 10^3/uL (1.5-6.6); NEUTROPHILS % (AUTO) 55.2 %; PLT - PLATELET COUNT 423 10^3/uL (130-450); WHITE BLOOD COUNT 7.1 x10^3/uL (4.8-10.8)
[2023-11-30 01:58] LABS: SLIDE REVIEW? Indicated
[2023-11-30 02:34] LABS: ALBUMIN 4.1 g/dL (3.2-5.5); ALBUMIN/GLOBULIN RATIO 1.7 (1.0-2.2); ALKALINE PHOSPHATASE 56 IU/L (42-121); ALT ALANINE AMINOTRANSFERASE 21 IU/L (10-60); AST ASPARTATE AMINOTRANSFERASE 22 IU/L (10-42); BILIRUBIN,TOTAL 0.3 mg/dL (0.2-1.0); BUN - BLOOD UREA NITROGEN 13 mg/dL (6-20); CALCIUM 9.4 mg/dL (8.5-10.3); CARBON DIOXIDE - CO2 28 mmol/L (21-32); CHLORIDE 103 mmol/L (101-111); CREATININE 0.8 mg/dL (0.6-1.3); ETOH - ETHANOL < 10.0 mg/dL; GFR - MDRD 97 (>89); GLUCOSE 116 mg/dL (74-104); LIPASE 109 U/L (11-82); POTASSIUM 3.8 mmol/L (3.5-4.5); SODIUM 137 mmol/L (135-145); TOTAL PROTEIN 6.5 g/dL (6.4-8.9)
[2023-11-30 02:39] LABS: PLATELET ESTIMATE, MANUAL INCREASED (>450,000) (NORMAL); PLATELET MORPHOLOGY RARE GIANT PLATELETS (NORMAL); RBC MORPHOLOGY (MULTIPLE) 1+ MACROCYTOSIS (NORMAL)
[2023-11-30] MEDS: SODIUM CHLORIDE 0.9% 1,000 ML IV STA (02:50)
--- NOTE | 2023-11-30 02:54 | ED Physician Documentation ---
PD HPI ABD PAIN - Stated complaint Stated Complaint: ABD PX - Chief complaint Chief Complaint: Abd Pain - History obtained from History obtained from: Patient - Additional information Additional information: Patient is a 63-year-old male with a history of alcohol abuse, Crohn's with prior bowel resections, presenting for evaluation of lower abdominal pain. Patient seen in the emergency department on 11/29/2023 for the symptoms with workup revealing acute portal vein thrombosis with clot also seen in the left renal vein. Patient left AMA and did not fill his prescription for anticoagulation. This evening again started to have lower abdominal discomfort prompting him to come to the emergency department. No nausea or vomiting. Review of Systems Constitutional: denies: Fever Cardiac: denies: Chest pain / pressure Respiratory: denies: Dyspnea GI: reports: Abdominal Pain. denies: Vomiting, Diarrhea PD PAST MEDICAL HISTORY - Past Medical History Cardiovascular: None Respiratory: None Endocrine/Autoimmune: None GI: Crohn's disease : None HEENT: None Psych: Depression, Anxiety Musculoskeletal: Chronic back pain Derm: None - Past Surgical History Past Surgical History: Yes General: Bowel surgery Neuro: Other - Present Medications Home Medications: Ambulatory Orders Medication Instructions Recorded Confirmed No Known Home Medications 11/30/23 11/30/23 - Allergies Allergies/Adverse Reactions: Allergies Allergy/AdvReac Type Severity Reaction Status Date / Time No Known Drug Allergies Allergy Verified 11/29/23 11:05 - Social History Does the pt smoke?: Yes Smoking Status: Current every day smoker Does the pt drink ETOH?: Yes Does the pt have substance abuse?: No - Immunizations Immunizations are current?: No Immunizations: TDAP >10years/unknown, Other immun current - POLST Patient has POLST: No PD ED PE NORMAL - General General: Alert and oriented X 3, No acute distress, Well developed/nourished - HEENT HEENT: Atraumatic - Neck Neck: Supple, no meningeal sign - Cardiac Cardiac: RRR - Respiratory Respiratory: No respiratory distress, Clear bilaterally - Abdomen Abdomen: Normal bowel sounds, Soft, Non distended, Other (Well-healed midline incision, lower abdominal tenderness) - Derm Derm: Warm and dry - Neuro Neuro: Normal speech Results - Vitals Vitals: Vital Signs - 24 hr 11/30/23 11/30/23 01:08 02:52 Temperature 36.5 C Heart Rate 88 82 Respiratory 16 Rate Blood Pressure 123/74 156/115 H O2 Saturation 97 100 Oxygen O2 Source Room air - Labs Labs: Laboratory Tests 11/30/23 11/30/23 11/30/23 01:27 01:28 01:28 WBC 7.1 RBC 2.30 L Hgb 10.7 L Hct 30.3 L MCV 131.7 H MCH 46.5 H MCHC 35.3 RDW 14.1 Plt Count 423 MPV 10.3 Neut # (Auto) 3.9 Lymph # (Auto) 1.8 [place] # (Auto) 0.7 Eos # (Auto) 0.7 Baso # (Auto) 0.0 Absolute Nucleated RBC 0.00 Nucleated RBC % 0.0 Manual Slide Review Indicated Platelet Estimate INCREASED (>450,000) Platelet Morphology RARE GIANT PLATELETS RBC Morph Micro Appear 1+ MACROCYTOSIS PT INR APTT 29.5 Sodium 137 Potassium 3.8 Chloride 103 Carbon Dioxide 28 Anion Gap 6.0 BUN 13 Creatinine 0.8 Estimated GFR (MDRD) 97 Glucose 116 H Calcium 9.4 Total Bilirubin 0.3 AST 22 ALT 21 Alkaline Phosphatase 56 Total Protein 6.5 Albumin 4.1 Globulin 2.4 Albumin/Globulin Ratio 1.7 Lipase 109 H Ethyl Alcohol < 10.0 11/30/23 01:28 WBC RBC Hgb Hct MCV MCH MCHC RDW Plt Count MPV Neut # (Auto) Lymph # (Auto) [place] # (Auto) Eos # (Auto) Baso # (Auto) Absolute Nucleated RBC Nucleated RBC % Manual Slide Review Platelet Estimate Platelet Morphology RBC Morph Micro Appear PT 13.6 H INR 1.2 APTT Sodium Potassium Chloride Carbon Dioxide Anion Gap BUN Creatinine Estimated GFR (MDRD) Glucose Calcium Total Bilirubin AST ALT Alkaline Phosphatase Total Protein Albumin Globulin Albumin/Globulin Ratio Lipase Ethyl Alcohol PD Medical Decision Making - ED course Complexity details: reviewed results, re-evaluated patient, d/w patient ED course: Patient is a 63-year-old presenting for evaluation of lower abdominal pain.Found to have portal vein and renal vein thrombosis on workup earlier and patient left AMA. Vital signs are stable. Mild tenderness on exam. Patient was given IV morphine for pain CBC, chemistry, INR were reviewed.Hemoglobin 10.7. No symptoms to suggest GI bleed. Acute abdominal series was obtained and there is signs of p.o. contrast that patient had earlier in the colon thus I feel small bowel obstruction to be unlikely.Patient started on heparin. Admitted to hospitalist service for further management of portal vein thrombosis. 0256 - D/W Dr. Baron. Given that the treatment would be anticoagulation with heparin, feels this patient could be admitted here but would recommend admission to medicine service. Departure - Departure Disposition: 64 [facility] DC/Xfer Clinical Impression: Thrombosis, portal vein, Renal vein thrombosis Condition: Good Discharge Date/Time: 11/30/23 04:20
[2023-11-30] MEDS: HEPARIN 25000UNITS/500ML (D5W) 25,000 UNIT/500 ML BAG IV SCH (03:08)
--- NOTE | 2023-11-30 03:28 | HISTORY & PHYSICAL EXAMINATION ---
Chief Complaint - Chief Complaint Chief Complaint: abdominal pain History of Present Illness - Admitted From Admitted From:: home - History Obtained From History obtained from: ED physician and patient - History of Present Illness HPI Comment/Other: Mr. Peters is a 63 you gentleman,with a history of ETOH abuse, tobacco abuse, Crohn's Disease. Patient presented to the ED for evaluation of abdominal pain x 5 days. Pain has been intermittent,cramping in quality and worse after eating. He denied any nausea or vomiting.He has had decrease intake. He has not had any blood in stool. Due to history of crohn's he was concerned about SBO. He has endorsed an unintentional weight loss over the past 6 months of 15lbs. He is not on any medication for his crohn's and has not had outpatient follow up in several months due to lack of insurance coverage. In the ED, he underwent ev aluation KUB negative for obstruction. CT abdomen and pelvis demonstrated findings of portal vein thrombosis. patient was admitted for anticoagulation and pain management. I performed this visit using real time tele-health tools,including live video for face to face evaluation. I obtained the patient's informed consent. History - Past Medical History Cardiovascular: reports: None Respiratory: reports: None Endocrine/Autoimmune: reports: None GI: reports: Crohn's disease : reports: None HEENT: reports: None Psych: reports: Depression, Anxiety Musculoskeletal: reports: Chronic back pain Derm: reports: None MRSA Hx?: No - Past Surgical History General: reports: Bowel surgery Neuro: reports: Other - Family & Social History Social History Notes: Drinks alcohol daily and heavily. - POLST Patient has POLST: No Meds/Allgy - Home Medications Home Medications: Ambulatory Orders Medication Instructions Recorded Confirmed Bacitracin Zinc Oint 1 applic TOP BID #1 each 09/26/23 11/29/23 Lidocaine Patch 5% [Lidoderm Patch] 1 patch TOP DAILY PRN #10 patch 09/26/23 11/29/23 Oxycodone HCl/Acetaminophen 1 each PO Q6H PRN #14 tablet 09/26/23 11/29/23 [Percocet 5-325 mg Tablet] Apixaban [Eliquis] 2 tab PO BID #28 tablet 11/29/23 - Allergies Allergies/Adverse Reactions: Allergies Allergy/AdvReac Type Severity Reaction Status Date / Time No Known Drug Allergies Allergy Verified 11/29/23 11:05 Review of Systems - Gastrointestinal Gastrointestinal: reports: Abdominal pain, Constipation. denies: Abdominal distention - All Other Systems All Other Systems: reports: Reviewed and negative Exam - Vital Signs Reviewed Vital Signs: Yes Vital Signs: Vital Signs x48h Temp Pulse Resp BP Pulse Ox 11/30/23 03:12 93 18 131/82 H 99 11/30/23 02:52 82 156/115 H 100 11/30/23 01:08 36.5 C 88 16 123/74 97 - Physical Exam General Appearance: positive: No acute distress, Alert Eyes Bilateral: positive: Normal inspection, PERRL Respiratory: positive: Chest non-tender, No respiratory distress, Breath sounds nml Cardiovascular: positive: Regular rate & rhythm, No murmur, No gallop Abdomen: positive: No distention. negative: Tenderness, Mass, Abnml bowel sounds Extremities: positive: Non-tender, Full ROM, Nml appearance Neurologic/Psychiatric: positive: Oriented x3, Mood/affect nml Conclusion/Plan - Problem List (1) Thrombosis, portal vein Conclusion/Plan: -heparin drip initiated, continue per protocol -monitor cbc, ptt, inr, make adjustments as appropriate to achieve optimal management -monitor for any adverse side effects or evidence of bleeding -transition to oral anticoagulation as tolerated -continue with conservation management of pain, titrate to oral regimen as tolerated (2) Renal vein thrombosis Conclusion/Plan: -continue with anticoagulation -follow renal labs -monitor uop (3) Crohn disease Conclusion/Plan: -stable, not in acute flare -continue with bowel regimen as needed to maintain BM -case management, followup -may benefit from dietary consultation,evaluation of nutrition in the setting of recent weight loss. (4) Alcohol abuse Conclusion/Plan: - last drink reported a month ago -continue to monitor -Ativan as needed -electrolyte monitoring -vitamin supplementation b12, thiamine - Lab Results Fish Bones: 11/30/23 01:28 11/30/23 01:28 - Diagnostic Imaging Results Diagnostic Imaging Results: positive: Final report reviewed Core Measures - Anticipated LOS I expect patient to be DC'd or transferred within 96 hours.: Yes - DVT/VTE - Prophylaxis VTE/DVT Device ordered at admit?: Yes Telemedicine Consult Details - Provider Location & Consult Time Telemedicine consultation conducted via videoconferencing?: Yes
[2023-11-30] MEDS: HYDROcod/ACETAM 5/325 MG TABLET PO PRN (04:56)
[2023-11-30] MEDS: LORazepam 2 MG/ML VIAL IVP PRN (04:57)
[2023-11-30] MEDS: DOCUSATE SODIUM 100 MG CAPSULE PO SCH (04:57)
[2023-11-30 06:46] LABS: BASOPHILS # (AUTO) 0.1 10^3/uL (0.0-0.1); BASOPHILS % (AUTO) 0.9 %; EOSINOPHILS # (AUTO) 0.7 10^3/uL (0.0-0.7); EOSINOPHILS % (AUTO) 13.5 %; HCT - HEMATOCRIT 29.1 % (42.0-52.0); HGB - HEMOGLOBIN 10.1 g/dL (14.0-18.0); LYMPHOCYTES # (AUTO) 1.8 10^3/uL (1.5-3.5); MEAN CORPUSCULAR HEMOGLOBIN 45.9 pg (27.0-31.0); MEAN CORPUSCULAR HGB CONC 34.7 g/dL (32.0-36.0); MEAN CORPUSCULAR VOLUME 132.3 fL (80.0-94.0); MEAN PLATELET VOLUME 9.9 fL (7.4-11.4); MONOCYTES # (AUTO) 0.5 10^3/uL (0.0-1.0); MONOCYTES % (AUTO) 10.1 %; NEUTROPHILS # (AUTO) 2.2 10^3/uL (1.5-6.6); NEUTROPHILS % (AUTO) 41.3 %; PLT - PLATELET COUNT 366 10^3/uL (130-450); RED CELL DISTRIBUTION WIDTH 14.4 % (12.0-15.0); WHITE BLOOD COUNT 5.4 x10^3/uL (4.8-10.8)
[2023-11-30 07:00] LABS: ALBUMIN 3.1 g/dL (3.2-5.5); ALBUMIN/GLOBULIN RATIO 1.6 (1.0-2.2); BILIRUBIN,TOTAL 0.4 mg/dL (0.2-1.0); CALCIUM 8.4 mg/dL (8.5-10.3); CREATININE 0.7 mg/dL (0.6-1.3); POTASSIUM 3.7 mmol/L (3.5-4.5); TOTAL PROTEIN 5.1 g/dL (6.4-8.9)
[2023-11-30 07:26] LABS: SLIDE REVIEW? Indicated
[2023-11-30 07:27] LABS: RBC MORPHOLOGY (MULTIPLE) 2+ MACROCYTOSIS (NORMAL)
--- NOTE | 2023-11-30 08:29 | XRAY Report ---
PROCEDURE: Abdomen Acute INDICATIONS: lower abd pain/history of SBO TECHNIQUE: AP chest and 2 views of the abdomen were acquired. COMPARISON: CT abdomen pelvis 11/29/2023 FINDINGS: Surgical changes and devices: A few surgical clips present in the right lower quadrant and multiple staple lines in the pelvis of prior bowel anastomosis. Chest: Lungs are clear. Heart size is normal. No pleural effusions. No pneumoperitoneum. Bowel: No pneumoperitoneum. There are a few loops of mildly prominent bowel with air-fluid levels in the left upper quadrant. There is large quantity of solid stool in descending colon.. Paucity of sto ol over the rectum. Residual contrast in the distal colon. Soft tissues: No masses; visualized solid organ contours appear normal in size. No suspicious abdom inal calcifications. Bones: No suspicious bony abnormalities. IMPRESSION: Mildly prominent air-filled upper quadrant bowel loops. This is nonspecific. Increased stool in the descending colon with paucity of stool over the rectum. Appearance is similar compared to recent CT scan. No acute cardiopulmonary disease. Final interpretation concordant with preliminary report. Reviewed by: Tressa Morfin MD on 11/30/2023 8:28 AM PDT Approved by: Tressa Morfin MD on 11/30/2023 8:28 AM PDT Station ID: [id number]
--- NOTE | 2023-11-30 08:31 | PROVIDER PROGRESS NOTE ---
Subjective - Prog Note Date Prog Note Date: 11/30/23 Prog Note Time: 08:21 - Subjective Pt reports feeling: No change Objective - Vital Signs/Intake & Output Vital Signs: Vital Signs x48h Temp Pulse Pulse Resp BP BP Pulse Ox 11/30/23 04:44 37.3 C 97 18 140/83 H 95 11/30/23 03:12 93 18 131/82 H 99 11/30/23 02:52 82 156/115 H 100 11/30/23 01:08 36.5 C 88 16 123/74 97 Intake & Output: Intake & Output 11/27/23 11/28/23 11/29/23 11/30/23 23:59 23:59 23:59 23:59 Intake Total 1240 Balance 1240 - Lab Results Fish Bones: 11/30/23 06:36 11/30/23 06:36 Other Labs: Lab Results x24hrs 11/30/23 11/30/23 11/30/23 Range/Units 06:36 06:36 06:36 WBC 5.4 (4.8-10.8) x10^3/uL RBC 2.20 L (4.70-6.10) 10^6/uL Hgb 10.1 L (14.0-18.0) g/dL Hct 29.1 L (42.0-52.0) % MCV 132.3 H (80.0-94.0) fL MCH 45.9 H (27.0-31.0) pg MCHC 34.7 (32.0-36.0) g/dL RDW 14.4 (12.0-15.0) % Plt Count 366 (130-450) 10^3/uL MPV 9.9 (7.4-11.4) fL Neut # (Auto) 2.2 (1.5-6.6) 10^3/uL Lymph # (Auto) 1.8 (1.5-3.5) 10^3/uL [place] # (Auto) 0.5 (0.0-1.0) 10^3/uL Eos # (Auto) 0.7 (0.0-0.7) 10^3/uL Baso # (Auto) 0.1 (0.0-0.1) 10^3/uL Absolute Nucleated RBC 0.00 x10^3/uL Nucleated RBC % 0.0 /100WBC Manual Slide Review Indicated Platelet Estimate (NORMAL) Platelet Morphology (NORMAL) RBC Morph Micro Appear 2+ MACROCYTOSIS (NORMAL) PT (9.9-12.6) secs INR (0.8-1.2) APTT 80.9 H (24.9-33.3) secs Sodium 140 (135-145) mmol/L Potassium 3.7 (3.5-4.5) mmol/L Chloride 113 H (101-111) mmol/L Carbon Dioxide 24 (21-32) mmol/L Anion Gap 3.0 L (6-13) BUN 7 (6-20) mg/dL Creatinine 0.7 (0.6-1.3) mg/dL Estimated GFR (MDRD) 113 (>89) Glucose 97 (74-104) mg/dL Calcium 8.4 L (8.5-10.3) mg/dL Total Bilirubin 0.4 (0.2-1.0) mg/dL AST 8 L (10-42) IU/L ALT 6 L (10-60) IU/L Alkaline Phosphatase 42 (42-121) IU/L Total Protein 5.1 L (6.4-8.9) g/dL Albumin 3.1 L (3.2-5.5) g/dL Globulin 2.0 L (2.1-4.2) g/dL Albumin/Globulin Ratio 1.6 (1.0-2.2) Lipase (11-82) U/L Ethyl Alcohol mg/dL 11/30/23 11/30/23 11/30/23 Range/Units 01:28 01:28 :28 WBC 7.1 (4.8-10.8) x10^3/uL RBC 2.30 L (4.70-6.10) 10^6/uL Hgb 10.7 L (14.0-18.0) g/dL Hct 30.3 L (42.0-52.0) % MCV 131.7 H (80.0-94.0) fL MCH 46.5 H (27.0-31.0) pg MCHC 35.3 (32.0-36.0) g/dL RDW 14.1 (12.0-15.0) % Plt Count 423 (130-450) 10^3/uL MPV 10.3 (7.4-11.4) fL Neut # (Auto) 3.9 (1.5-6.6) 10^3/uL Lymph # (Auto) 1.8 (1.5-3.5) 10^3/uL [place] # (Auto) 0.7 (0.0-1.0) 10^3/uL Eos # (Auto) 0.7 (0.0-0.7) 10^3/uL Baso # (Auto) 0.0 (0.0-0.1) 10^3/uL Absolute Nucleated RBC 0.00 x10^3/uL Nucleated RBC % 0.0 /100WBC Manual Slide Review Indicated Platelet Estimate INCREASED (>450,000) (NORMAL) Platelet Morphology RARE GIANT PLATELETS (NORMAL) RBC Morph Micro Appear 1+ MACROCYTOSIS (NORMAL) PT 13.6 H (9.9-12.6) secs INR 1.2 (0.8-1.2) APTT (24.9-33.3) secs Sodium 137 (135-145) mmol/L Potassium 3.8 (3.5-4.5) mmol/L Chloride 103 (101-111) mmol/L Carbon Dioxide 28 (21-32) mmol/L Anion Gap 6.0 (6-13) BUN 13 (6-20) mg/dL Creatinine 0.8 (0.6-1.3) mg/dL Estimated GFR (MDRD) 97 (>89) Glucose 116 H (74-104) mg/dL Calcium 9.4 (8.5-10.3) mg/dL Total Bilirubin 0.3 (0.2-1.0) mg/dL AST 22 (10-42) IU/L ALT 21 (10-60) IU/L Alkaline Phosphatase 56 (42-121) IU/L Total Protein 6.5 (6.4-8.9) g/dL Albumin 4.1 (3.2-5.5) g/dL Globulin 2.4 (2.1-4.2) g/dL Albumin/Globulin Ratio 1.7 (1.0-2.2) Lipase 109 H (11-82) U/L Ethyl Alcohol < 10.0 mg/dL 11/30/23 Range/Units 01:27 WBC (4.8-10.8) x10^3/uL RBC (4.70-6.10) 10^6/uL Hgb (14.0-18.0) g/dL Hct (42.0-52.0) % MCV (80.0-94.0) fL MCH (27.0-31.0) pg MCHC (32.0-36.0) g/dL RDW (12.0-15.0) % Plt Count (130-450) 10^3/uL MPV (7.4-11.4) fL Neut # (Auto) (1.5-6.6) 10^3/uL Lymph # (Auto) (1.5-3.5) 10^3/uL [place] # (Auto) (0.0-1.0) 10^3/uL Eos # (Auto) (0.0-0.7) 10^3/uL Baso # (Auto) (0.0-0.1) 10^3/uL Absolute Nucleated RBC x10^3/uL Nucleated RBC % /100WBC Manual Slide Review Platelet Estimate (NORMAL) Platelet Morphology (NORMAL) RBC Morph Micro Appear (NORMAL) PT (9.9-12.6) secs INR (0.8-1.2) APTT 29.5 (24.9-33.3) secs Sodium (135-145) mmol/L Potassium (3.5-4.5) mmol/L Chloride (101-111) mmol/L Carbon Dioxide (21-32) mmol/L Anion Gap (6-13) BUN (6-20) mg/dL Creatinine (0.6-1.3) mg/dL Estimated GFR (MDRD) (>89) Glucose (74-104) mg/dL Calcium (8.5-10.3) mg/dL Total Bilirubin (0.2-1.0) mg/dL AST (10-42) IU/L ALT (10-60) IU/L Alkaline Phosphatase (42-121) IU/L Total Protein (6.4-8.9) g/dL Albumin (3.2-5.5) g/dL Globulin (2.1-4.2) g/dL Albumin/Globulin Ratio (1.0-2.2) Lipase (11-82) U/L Ethyl Alcohol mg/dL
[2023-11-30] MEDS: THIAMINE 100 MG TABLET PO SCH (08:50)
[2023-11-30] MEDS: SODIUM CHLORIDE FLUSH 0.9% 10 ML SYRINGE IVP SCH (08:50)
--- NOTE | 2023-11-30 10:14 | PHARMACY PROGRESS NOTE ---
- Best Possible Medication History Admit Date and Time: 11/30/23306 Processed by: Nursing Medications reviewed in ED?: Yes Medication History completed: Yes Patient Interview: Completed Secondary Source(s): Physician records, Insurance records As the person ultimately responsible for medication therapy, providers are able to order a medication from an existing home medication list in [facility] via the "Reconcile Routine" prior to Confirmation of that medication by production support specialist. Such practice is discouraged except when the physician, in their clinical judgment, deems that a medical need exists for a medication without regard to previous use.
[2023-11-30 10:30] LABS: ABSOLUTE RETICS # AUTO 0.035 10^6/uL (0.020-0.110); RED BLOOD COUNT 2.22 10^6/uL (4.70-6.10); RETICULOCYTE COUNT % (AUTO) 1.58 % (0.5-2.3)
[2023-11-30] MEDS: MORPHINE 2 MG/ML CARPUJECT IVP PRN (10:37)
[2023-11-30] MEDS ORDERED: ONDANSETRON ODT 4 MG TABLET TL PRN (10:52)
[2023-11-30] MEDS ORDERED: HYDROcod/ACETAM 10 MG/325 MG TABLET PO PRN (10:54)
[2023-11-30 11:04] LABS: % IRON SATURATION 13 % (20-50); IRON 26 ug/dL (50-212); TOTAL IRON BINDING CAPACITY 197 ug/dL (250-450); TRANSFERRIN 141 mg/dL (203-362)
[2023-11-30] MEDS: ACETAMINOPHEN 1,000 MG/100 ML 1,000 MG/100 ML BAG IV PRN (11:39)
[2023-11-30] MEDS: APIXABAN 5 MG TABLET PO SCH (13:19)
[2023-11-30] MEDS: CYANOCOBALAMIN 1,000 MCG/ML VIAL IM SCH (14:07)
[2023-11-30] MEDS: oxyCODONE 5 MG TABLET PO PRN (15:03)
[2023-11-30] MEDS: ACETAMINOPHEN 325 MG TABLET PO PRN (16:24)
[2023-11-30] MEDS: FERROUS SULFATE 325 MG TABLET PO SCH (16:25)
[2023-11-30] MEDS: SODIUM CHLORIDE FLUSH 0.9% 10 ML SYRINGE IVP PRN (16:25)
[2023-12-01 06:16] LABS: FERRITIN 156.7 ng/mL (23.9-336.2)
[2023-12-01 07:23] LABS: ABSOLUTE RETICS # AUTO 0.026 10^6/uL (0.020-0.110); RED BLOOD COUNT 2.15 10^6/uL (4.70-6.10); RETICULOCYTE COUNT % (AUTO) 1.2 % (0.5-2.3)
--- NOTE | 2023-12-01 07:42 | Discharge Plan ---
Discharge Plan Problem Reviewed?: Yes Disposition: Home, Self Care Condition: Good Prescriptions: Apixaban [Eliquis] 5 mg PO BID 90 Days #180 tab Ferrous Sulfate [Feosol] 325 mg PO BIDWM #180 tab Syringe and Needle,Insulin,1Ml [Insulin Syringe] 1 each MC DAILY #15 ea oxyCODONE [Roxicodone] 5 - 10 mg PO Q6H #40 tablet Cyanocobalamin [Vitamin B-12] 1,000 mcg SUBQ DAILY 90 Days #30 ml Diet: Regular Activity Restrictions: No Restrictions Shower Restrictions: No Driving Restrictions: No Weight Bearing: Full Weight Instruction Topics: IBS, Crohn Disease Health Concerns: abdominal pain. Plan of Treatment: You came into the hospital with abdominal pain that had been ongoing for quite a few days. We are able to get your pain under control with medication. It does not look like you had any blockage in your bowels. However in looking at imaging of your abdomen it looks like you have blood clots in several of the main veins drain your gastrointestinal system. Because of this you need to be on an anticoagulant medication. We have been able to obtain this medication for you and you will discharge home with that. I think it would be best for your health if you would completely stop consuming alcohol. This is not good for your liver or your gastrointestinal system. When you do have to come into the hospital, regular use of alcohol can also cause problems because you cannot consume alcohol in the hospital. Alcohol consumption can also lead to vitamin deficiencies which can worsen your anemia. Additionally in your blood work we noticed that you are anemic. This anemia is due to both of vitamin D be deficiency and an iron deficiency. We have prescribed you both of these medications. However, with your Crohn's disease you need regular outpatient follow-up. Not taking care of this problem can lead to more health problems. It is important that you establish primary care and get a referral to see a heading and priming operator. Given the fact that you cannot be seen at [facility], may be better to engage with a larger health system such as [facility]. Care Goals: Pain control. Eat a diet that is healthy for you and agrees with your system. Get specialty care to better control your Crohn's disease. Medications to treat your anemia. These are iron and B12. Assessment: You had an exacerbation of abdominal pain related to your Crohn's disease we also found blood clots in your GI system. No Smoking: If you smoke, Please STOP! Call for help.
--- NOTE | 2023-12-01 07:53 | DISCHARGE SUMMARY ---
"Discharge Summary Admit Date: 11/30/23 Discharge Date: 12/01/23 Discharging Provider: Argenis Curiel PA-C Primary Care Provider: none, we have attempted to assist patient in finding one. 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 Patient was initially discharged from the emergency department and instructed to start anticoagulation with Eliquis. He was not able to obtain the medication nor was he able to obtain pain medication as an outpatient due to transportation issues. He therefore re- presented to the emergency department with pain and was admitted to the hospital for control of his abdominal pain. He was started on a heparin drip at the time of admission. I consulted with a manufacturing director at [facility] regarding workup of his intra- abdominal venous thrombosis. I spoke with Dr. Efrain Patel at [place]. Hematology recommended outpatient hematology follow-up as well as GI follow-up for the patient's Crohn's disease. Additionally recommended I hypercoagulability workup eventually. This cannot be drawn in the setting of heparin therapy or Eliquis therapy. Therefore we will need to wait a period of time to do this. Additionally echocardiogram was done to evaluate for intra cardiac thrombus. Formal reading remains pending on the echocardiogram. Patient was started on Eliquis at 10 mg twice daily for 7 days and then will decrease his dosing to 5 mg twice daily. He was discharged home with medications in hand via the meds to bed program. Crohn's disease Had exacerbation of abdominal pain did not have any blood in his stools. Was having some loose stools. Had had 5 days of pain prior to admission. Was controlled here with parenteral narcotics with eventual transition to p.o. narcotics. On the date of discharge patient woke up with no pain in his abdomen. He has carried this diagnosis for many years but unfortunately has not been able to establish a relationship with gastroenterology. Patient currently does not have a primary care provider. He has been discharged from the [facility] care system due to behavioral events. He is dependent on public transportation and it has been difficult for him to find a primary care provider to refer him to gastroenterology to get the care that he needs for his Crohn's disease. Anemia Iron studies and vitamin B studies show low iron and low vitamin B-12 levels B12 level on hospital day 1 was less than 50. Repeat study on hospital day 2 shows a level of 1358. This is after 1 subcutaneous injection of B12, 1000 mcg. Patient will be discharged on B12 injections monthly with p.o. therapy daily. He has a history of B12 deficiency longstanding. Additionally he is discharged home on oral iron therapy. His anemia is likely secondary to his Crohn's disease. Alcohol abuse Unclear exactly how much he is drinking at home. He was counseled about alcohol use in the setting of his Crohn's disease and anemia. He did not have any symptoms of alcohol withdrawal while he was here. He was given vitamin supplementation while he was here. - HPI History of Present Illness: From [facility] H&P: Mr. Peters is a 63 you gentleman,with a history of ETOH abuse, tobacco abuse, Crohn's Disease. Patient presented to the ED for evaluation of abdominal pain x 5 days. Pain has been intermittent,cramping in quality and worse after eating. He denied any nausea or vomiting.He has had decrease intake. He has not had any blood in stool. Due to history of crohn's he was concerned about SBO. He has endorsed an unintentional weight loss over the past 6 months of 15lbs. He is not on any medication for his crohn's and has not had outpatient follow up in several months due to lack of insurance coverage. In the ED, he underwent evaluation KUB negative for obstruction. CT abdomen and pelvis demonstrated findings of portal vein thrombosis. patient was admitted for anticoagulation and pain management. - CONSULTS | PROCEDURES Consultations: telephone consultation with hematology. Procedures: none - HOSPITAL COURSE Hospital Course: Admitted as above for pain control and anticoagulation. Was started on a heparin drip. As noted patient has significant barriers to to care given deficits in his social determinants of health. He is reliant upon public transportation, does not have either a landline or a cell phone, and unfortunately has been discharged from the outpatient arm of our critical access hospital system due to behavioral events. Initially was dependent on parenteral narcotics but we were able to switch over to p.o. narcotics and eventually his abdominal pain abated. He was anticoagulated with heparin initially and transitioned over to Eliquis. Due to his inability to get meds from the pharmacy we were able to supply him with appropriate medication upon his discharge to home. - ALLERGIES Allergies/Adverse Reactions: Allergies Allergy/AdvReac Type Severity Reaction Status Date / Time No Known Drug Allergies Allergy Verified 11/29/23 11:05 - MEDICATIONS Home Medications: Ambulatory Orders Medication Instructions Recorded Confirmed Apixaban [Eliquis] 5 mg PO BID 90 Days #180 tab 11/30/23 oxyCODONE [Roxicodone] 5 - 10 mg PO Q6H #40 tablet 11/30/23 Apixaban [Eliquis] 10 mg PO BID tab 12/01/23 Cyanocobalamin (Vitamin B-12) 1,000 mcg SL DAILY #90 tab 12/01/23 [Vitamin B-12 (1000 mcg sublingual)] Cyanocobalamin [Vitamin B-12] 1,000 mcg SUBQ UD #10 ml 12/01/23 Ferrous Sulfate [Feosol] 325 mg PO BIDWM #180 tab 12/01/23 Syringe and Needle,Insulin,1Ml 1 each MC DAILY #15 ea 12/01/23 [Insulin Syringe] oxyCODONE [Roxicodone] 10 mg PO Q4HR PRN tab 12/01/23 - PHYSICAL EXAM AT DISCHARGE General Appearance: positive: No acute distress, Alert Eyes Bilateral: positive: Normal inspection ENT: positive: ENT inspection nml Neck: positive: Nml inspection Respiratory: positive: Breath sounds nml Cardiovascular: positive: Regular rate & rhythm Peripheral Pulses: positive: 2+ Abdomen: positive: Non-tender, Other (large midline scar) Skin: positive: Color nml Extremities: positive: Non-tender, No pedal edema Neurologic/Psychiatric: positive: Oriented x3 - LABS Result Diagrams: 11/30/23 06:36 11/30/23 06:36 - DIAGNOSTIC IMAGING Diagnostic Imaging Results: Final report reviewed Diagnostic Imaging Results Comments: CT Abdomen/pelvis shows mesenteric/portal vein thrombosis as well as left renal vein thrombosis - FOLLOW UP Follow Up: PCP- patient was given resources to obtain PCP and encouraged to establish this followup for referral to GI - TIME SPENT Time Spent in Discharge (Minutes): 45"
[2023-12-01] MEDS ORDERED: ACETAMINOPHEN 500 MG TABLET PO PRN (08:53)
--- NOTE | 2023-12-01 13:17 | Discharge Plan ---
Discharge Plan Problem Reviewed?: Yes Disposition: Home, Self Care Condition: Good Prescriptions: Apixaban [Eliquis] 5 mg PO BID 90 Days #180 tab Ferrous Sulfate [Feosol] 325 mg PO BIDWM #180 tab Syringe and Needle,Insulin,1Ml [Insulin Syringe] 1 each MC DAILY #15 ea oxyCODONE [Roxicodone] 5 - 10 mg PO Q6H #40 tablet Cyanocobalamin [Vitamin B-12] 1,000 mcg SUBQ UD #10 ml Cyanocobalamin (Vitamin B-12) [Vitamin B-12 (1000 mcg sublingual)] 1,000 mcg SL DAILY #90 tab Activity Restrictions: No Restrictions Shower Restrictions: No Driving Restrictions: No Weight Bearing: Full Weight Instruction Topics: Crohn Disease, IBS Health Concerns: abdominal pain. Plan of Treatment: You came into the hospital with abdominal pain that had been ongoing for quite a few days. We are able to get your pain under control with medication. It does not look like you had any blockage in your bowels. However in looking at imaging of your abdomen it looks like you have blood clots in several of the main veins drain your gastrointestinal system. Because of this you need to be on an anticoagulant medication. We have been able to obtain this medication for you and you will discharge home with that. I think it would be best for your health if you would completely stop consuming alcohol. This is not good for your liver or your gastrointestinal system. When you do have to come into the hospital, regular use of alcohol can also cause problems because you cannot consume alcohol in the hospital. Alcohol consumption can also lead to vitamin deficiencies which can worsen your anemia. Additionally in your blood work we noticed that you are anemic. This anemia is due to both of vitamin D be deficiency and an iron deficiency. We have prescribed you both of these medications. However, with your Crohn's disease you need regular outpatient follow-up. Not taking care of this problem can lead to more health problems. It is important that you establish primary care and get a referral to see a technology auditor. Given the fact that you cannot be seen at [facility], may be better to engage with a larger health system such as [facility] or [facility]. Care Goals: Pain control. Eat a diet that is healthy for you and agrees with your system. Get specialty care to better control your Crohn's disease. Medications to treat your anemia. These are iron and B12. Assessment: You had an exacerbation of abdominal pain related to your Crohn's disease we also found blood clots in your GI system. No Smoking: If you smoke, Please STOP! Call for help.
[2023-12-01 13:41] VITALS: BP 141/88; O2SAT 96
== END 2023-12-01 13:42 | disposition home or self-care (01) ==
LOC: EDBD → EDUNIT# → ED 01:04 → MS2 03:07
PROVIDERS: ADMIT Hospitalist; ATTEND Physician Assistant Medical
DX: I81 Portal vein thrombosis (principal); I82.3 Embolism and thrombosis of renal vein; K50.90 Crohn's disease, unspecified, without complications; F10.10 Alcohol abuse, uncomplicated; D64.9 Anemia, unspecified; E61.1 Iron deficiency; E53.8 Deficiency of other specified B group vitamins; G89.29 Other chronic pain; M54.9 Dorsalgia, unspecified; F17.200 Nicotine dependence, unspecified, uncomplicated; Z79.01 Long term (current) use of anticoagulants; Z91.148 Patient's other noncompliance with medication regimen for other reason
CPT/HCPCS: 36415; 74022; 80053; 82607; 82728; 82746; 83540; 83615; 83690; 84466; 85025; 85045; 85610; 85730; 93307; 96365; 96366; 96368; 96372; 96375; 96376; 99284; 99285; A9270; G0378; G0480; J0131; J2060; 82077